=== PATIENT | female | born 1955 | race Caucasian/White ===

== ENCOUNTER 2016-11-11 23:29 | Emergency (ER) ==
[2016-11-11] MEDS ORDERED: ASPIRIN PO STA (23:41)
[2016-11-11] MEDS ORDERED: NITROGLYCERIN SL PRN (23:41)
[2016-11-11] MEDS ORDERED: PROTONIX IV ONE (23:48)
[2016-11-11] MEDS ORDERED: NS 1,000 ML IV ONE (23:48)
[2016-11-11] MEDS ORDERED: SODIUM CHLORIDE 0.9% INJ ONE (23:48)
[2016-11-11] MEDS ORDERED: G.I. COCKTAIL PO ONE (23:48)
--- NOTE | 2016-11-12 00:16 | ED EKG INTERP ---
EKG Interpretation - EKG Time of EKG reading by physician:: 00:14 EKG Read and Signed by:: Celestino Alvarez EKG Interpretation (*Must complete 3 of following elements*): Normal Rate: 95 Rhythm: Normal sinus rhythm Attestation - Scribe Verification/Attestation Scribe:: Cr Dc Acting as Scribe for:: Celestino Alvarez Scribe documention review:: This chart was documented by a scribe and accurately reflects the service the provider performed and the decisions made by the provider.
--- NOTE | 2016-11-12 00:30 | PROVIDER DOCUMENTATION ---
HPI-Abdominal Pain/GI Problem - History of Present Illness-ABD Nature of Presenting Problems: Pt comes in stating the her GI doctor changed her from protonix to zantac and since that time she has been having GERD and "CP" which appears to be epigastric in nature. She has had some nause and diarrhea but she was put on augmentin and started having diarrhea after starting it and it is a common side effect of this medication. She denies radiation of pain <Mickey Wolff - Last Filed: 11/12/16 01:59> <Cr Dc - Last Filed: 11/12/16 03:18> <Celestino Alvarez - Last Filed: 11/12/16 03:53> - General Chief Complaint: Chest Pain Stated Complaint: CP, DIARRHEA, NAUSEA Time Seen by Provider: 11/11/16 23:39 Allergies/Adverse Reactions: Patient Allergies Allergy/AdvReac Type Severity Reaction Status Date / Time hydrocodone bitartrate * AdvReac VOMITING Verified 05/07/16 21:50 [From [place]] Home Medications: Home Medication List Medication Instructions Recorded Confirmed Last Taken Type Losartan [Cozaar] 25 mg PO HS 12/21/14 11/01/16 05/06/16 History Metformin [Glucophage] 1,000 mg PO BID 02/20/15 11/01/16 05/07/16 11:00 History Vitamin B Complex [Complex B-100] 1 each PO HS 07/19/15 05/07/16 05/06/16 History Alprazolam [Xanax] 0.25 mg PO BID 05/07/16 11/01/16 05/06/16 History Amoxicillin/Pot Clavulanate 875 mg PO Q12HR #14 tablet 11/01/16 Unknown Rx [Augmentin] Budesonide Inhaler [Pulmicort 1 puff INH RTBID #1 inhaler 11/01/16 Unknown Rx Flexhaler] Fluconazole [Diflucan] 150 mg PO DAILY #3 tablet 11/01/16 Unknown Rx Fluticasone 50 Mcg Nasal [place] 1 spray FAISAL DAILY #1 bottle 11/01/16 Unknown Rx [Flonase] Guaifen/Dextromethorphan/PE 1 each PO TID #30 tablet 11/01/16 Unknown Rx [Deconex Dmx Tablet] Ranitidine HCl [Zantac] 150 mg PO BID 11/01/16 11/01/16 Unknown History Review of Systems - Adult - REVIEW OF SYSTEMS - ADULT Constitutional: reports: no symptoms reported. denies: chills, fever, fatique, weight gain, weight loss Eyes: reports: no symptoms reported. denies: discharge, dry eyes, decreased vision, blurred vision, double vision, eye pain, redness Ears, Nose, Mouth & Throat: reports: no symptoms reported. denies: ear discharge, hearing loss, tinnitus, epistaxis, nose pain, mouth swelling, hoarseness, throat pain, throat swelling Cardiovascular: reports: see HPI, chest pain. denies: edema, heart murmur, orthopnea, palpitations, poor circulation, PND, syncope Respiratory: reports: no symptoms reported. denies: chronic cough, cough, dyspnea on exertion, excessive sputum production, hemoptysis, pleurisy, shortness of breath, wheezing Gastrointestinal: reports: see HPI, abdominal pain, diarrhea, nausea. denies: hematemesis, constipation, difficulty swallowing, frequent heartburn, poor appetite, rectal bleeding, vomiting Genitourinary: reports: no symptoms reported. denies: dysuria, discharge, frequency, flank pain, hematuria, hesitency, incontinence, urinary retention Musculoskeletal: reports: no symptoms reported. denies: bone pain, back pain, joint pain, joint swelling, muscle aches, muscle weakness, neck pain Integumentary: reports: no symptoms reported. denies: hives, hair loss, itching , nail changes, rash, skin sores/ulcer, skin thickening Neurological: reports: no symptoms reported. denies: ataxia, dizziness/vertigo , headache/migraines, numbness, seizure, slurred speech Psychiatric: reports: no symptoms reported. denies: anxiety, anti-depressant use, alcohol/drug dependence, depression, emotional problems, panic attacks, suicidal thoughts Endocrine: reports: no symptoms reported. denies: change in skin pigment, excessive sweating, goiter, cold intolerance, increased hunger, increased thirst , polyuria Hematologic/Lymphatic: reports: no symptoms reported. denies: blood clots, easy bruising, low blood count, lymphedema, prolonged bleeding, swollen lymph nodes, transfusions Allergic/Immunologic: reports: no symptoms reported. denies: allergic reactions , allergic rhinitis, asthma, eczema, food allergy, hay fever, hives, positive PPD, urticaria All Other Systems: Reviewed and Negative <Mickey Wolff - Last Filed: 11/12/16 01:59> Past History - Adult - PAST MEDICAL HISTORY-ADULT Review of Records: reports: Old Records Reviewed, Nursing Assessment Review, Medications Reviewed, Social history reviewed & non-contributory. Major Childhood Illnesses: reports: denies history Cardiovascular: reports: HTN, hyperlipidemia Respiratory: reports: bronchitis, COPD, other (hx collapsed emre requiring pleurodesis) Gastrointestinal: reports: denies history Obstetrical/Gynecological: reports: other (post menopausal) Genitourinary: reports: denies history Musculoskeletal: reports: denies history Neurological: reports: denies history Psychiatric: reports: depression Endocrine/Immune: reports: Diabetes Other Conditions: reports: denies history - PRIOR SURGERIES/PROCEDURES Surgical/Procedure History: reports: hysterectomy, BTL, , hernia repair - PRIOR HOSPITALIZATIONS Prior Hospitalizations: reports: none - IMMUNIZATION STATUS Childhood Immunizations: See Nurse Assessment Flu Vaccine: See Nurse Assessment - FAMILY HISTORY Family History: reviewed, not pertinent - SOCIAL HISTORY Smoking: cigarettes, less than 1 pack/day Provider spent 3-5 mins advising pt. on dangers of tobacco.: Discussed manners to quit use, and f/u contacts for add'l counseling. Substance Use: none/never Alcohol Use Frequency: never Living Situation: family <Mickey Wolff - Last Filed: 11/12/16 01:59> Physical Exam-General - PHYSICAL EXAM-ADULT Initial Vital Signs Reviewed: Yes - CONSTITUTIONAL General Appearance: appears well, alert, no apparent distress - EYES Eyes: PERRL/EOMI, pink conjunctivae - HEAD, EARS, NOSE, MOUTH & THROAT HENMT: normocephalic/atraumatic, moist mucous membranes, normal ENT inspection - NECK Neck: non-tender, full range of motion - RESPIRATORY Respiratory: chest non-tender, lungs clear, normal breath sounds - CARDIOVASCULAR Cardiovascular: normal peripheral pulses, regular rate, rhythm, no edema, no gallop - GASTROINTESTINAL (ABDOMEN) Abdominal Exam: normal bowel sounds, non tender, soft - MUSCULOSKELETAL Back Exam: normal inspection, no CVA tenderness, no vertebral tenderness Extremity: normal range of motion, non-tender, normal gait - SKIN Integumentary: normal color, normal turgor, warm/dry - NEUROLOGIC Neurologic: director of curriculum II-XII nml as tested, grossly normal - PSYCHIATRIC Psych/Mental Status: normal mood/affect, normal thought content, normal thought process, oriented x 3 <Mickey Wolff - Last Filed: 11/12/16 01:59> Progress - PLAN OF CARE/RESULTS Progress/Plan/Lab Results: Laboratory Tests 11/12/16 11/12/16 11/12/16 00:40 00:40 00:40 WBC 15.32 H RBC 5.07 Hgb 13.8 Hct 41.0 MCV 80.9 L MCH 27.2 MCHC 33.7 RDW Std Deviation 14.4 Plt Count 313 MPV 10.8 H Immature Gran % (Auto) 0.3 Neut % (Auto) 60.7 Lymph % (Auto) 25.7 [place] % (Auto) 6.7 Eos % (Auto) 6.3 Baso % (Auto) 0.3 Immature Gran # (Auto) 0.04 Neut # (Auto) 9.30 H Lymph # (Auto) 3.94 H [place] # (Auto) 1.03 H Eos # (Auto) 0.96 H Baso # (Auto) 0.05 PT INR PTT (Actin FS) D-Dimer 0.55 H Sodium 136 Potassium 4.1 Chloride 96 L Carbon Dioxide 22 L Anion Gap 18 BUN 8 Creatinine 0.6 Estimated GFR/1.73 m2 > 60 BUN/Creatinine Ratio 13 Glucose 206 H Calculated Osmolality 276 Calcium 10.0 Magnesium 1.7 Total Bilirubin 0.29 AST 15 ALT 12 Alkaline Phosphatase 105 H Creatine Kinase 66 Troponin T Total Protein 7.0 Albumin 4.2 Globulin 2.8 Albumin/Globulin Ratio 1.5 Amylase 43 Lipase 30 11/12/16 11/12/16 00:40 00:40 WBC RBC Hgb Hct MCV MCH MCHC RDW Std Deviation Plt Count MPV Immature Gran % (Auto) Neut % (Auto) Lymph % (Auto) [place] % (Auto) Eos % (Auto) Baso % (Auto) Immature Gran # (Auto) Neut # (Auto) Lymph # (Auto) [place] # (Auto) Eos # (Auto) Baso # (Auto) PT 9.9 INR 0.93 PTT (Actin FS) 21.8 L D-Dimer Sodium Potassium Chloride Carbon Dioxide Anion Gap BUN Creatinine Estimated GFR/1.73 m2 BUN/Creatinine Ratio Glucose Calculated Osmolality Calcium Magnesium Total Bilirubin AST ALT Alkaline Phosphatase Creatine Kinase Troponin T < 0.010 Total Protein Albumin Globulin Albumin/Globulin Ratio Amylase Lipase Orders Category Date Time Status Cardiac Monitoring DIRECTED Care 11/11/16 23:41 Active Saline Loc DIRECTED Care 11/11/16 23:41 Active NPO Diet 11/11/16 23:41 Active CHEST-2 VIEWS [RAD] Stat Exams 11/11/16 23:41 Taken AMYLASE [CHEM] Stat Lab 11/12/16 00:40 Completed CBC WITH ELECTRONIC DIFF [HEME] Stat Lab 11/12/16 00:40 Completed CK PROFILE [SP CHEM] Stat Lab 11/12/16 00:40 Completed CK PROFILE [SP CHEM] Timed Lab 11/12/16 02:40 Uncollected COMPREHENSIVE METABOLIC PANEL [CHEM] Stat Lab 11/12/16 00:40 Completed D-DIMER [CHEM] Stat Lab 11/12/16 00:40 Completed LIPASE [CHEM] Stat Lab 11/12/16 00:40 Completed MAGNESIUM [CHEM] Stat Lab 11/12/16 00:40 Completed PRO B-NATRIURETIC PEPTIDE Stat Lab 11/12/16 00:40 Received PROTIME WITH INR [COAG] Stat Lab 11/12/16 00:40 Completed PTT [COAG] Stat Lab 11/12/16 00:40 Completed TROPONIN T Stat Lab 11/12/16 00:40 Completed TROPONIN T Timed Lab 11/12/16 02:40 Uncollected URINALYSIS W/POSS RFLX CULT [URINALYSIS] Stat Lab 11/11/16 23:41 Uncollected 0.9% Sodium Chloride Inj [Ns] 1,000 ml Med 11/11/16 23:48 Discontinued IV 999 mls/hr Aspirin Med 11/11/16 23:41 Discontinued 325 mg PO STAT STA [place] Alk/Al&mg Hydrox [G.i. Cocktail] Med 11/11/16 23:48 Discontinued 30 ml PO NOW ONE Nitroglycerin Sl [Nitroglycerin] Med 11/11/16 23:41 Active 0.4 mg SL Q5M PRN PRN Pantoprazole [Protonix] Med 11/11/16 23:48 Discontinued 40 mg IV NOW ONE Sodium Chloride 0.9% Med 11/11/16 23:48 Discontinued 10 ml INJ NOW ONE EKG [EKG] Stat Ther 11/11/16 23:41 Ordered Vital Signs - 24 hr 11/11/16 23:49 Pulse Rate 92 H Respiratory 22 Rate Blood Pressure 146/93 O2 Sat by Pulse 98 Oximetry - XRAY 1 XRAY Study: Chest XRAY Interpretation: nad (hcb) - CHANGE OF SHIFT REPORT (ED Provider) Report Given and Care Transferred to:: [facility] Time of Transfer: 01:31 Items Pending: Labs Tentative Impression of Patient: GERD <Mickey Wolff - Last Filed: 11/12/16 01:59> - EKG 1 Time of EKG reading by physician:: 02:54 EKG Read and Signed by:: Celestino Alvarez EKG Interpretation (*Must complete 3 of following elements*): Normal Rate: 84 Rhythm: Normal sinus rhythm - CHANGE OF SHIFT REPORT (ED Provider) Report Given and Care Transferred to:: Dr. Alvarez Time of Transfer: 02:00 Items Pending: Labs, XRAY Results <Cr Dc - Last Filed: 11/12/16 03:18> - PLAN OF CARE/RESULTS Progress/Plan/Lab Results: Laboratory Tests 11/12/16 11/12/16 11/12/16 00:40 00:40 00:40 WBC 15.32 H RBC 5.07 Hgb 13.8 Hct 41.0 MCV 80.9 L MCH 27.2 MCHC 33.7 RDW Std Deviation 14.4 Plt Count 313 MPV 10.8 H Immature Gran % (Auto) 0.3 Neut % (Auto) 60.7 Lymph % (Auto) 25.7 [place] % (Auto) 6.7 Eos % (Auto) 6.3 Baso % (Auto) 0.3 Immature Gran # (Auto) 0.04 Neut # (Auto) 9.30 H Lymph # (Auto) 3.94 H [place] # (Auto) 1.03 H Eos # (Auto) 0.96 H Baso # (Auto) 0.05 PT INR PTT (Actin FS) D-Dimer 0.55 H Sodium 136 Potassium 4.1 Chloride 96 L Carbon Dioxide 22 L Anion Gap 18 BUN 8 Creatinine 0.6 Estimated GFR/1.73 m2 > 60 BUN/Creatinine Ratio 13 Glucose 206 H Calculated Osmolality 276 Calcium 10.0 Magnesium 1.7 Total Bilirubin 0.29 AST 15 ALT 12 Alkaline Phosphatase 105 H Creatine Kinase 66 Troponin T Viu-S-Vquthtsfpry Pept Total Protein 7.0 Albumin 4.2 Globulin 2.8 Albumin/Globulin Ratio 1.5 Amylase 43 Lipase 30 Urine Source Urine Color Urine Turbidity Urine pH Ur Specific [place] Urine Protein Ur Glucose (Stick) Ur Ketones (Stick) Urine Blood Urine Nitrite Urine Bilirubin Urobilinogen Dipstick Urine Leukocytes Urine WBC (Auto) Urine RBC (Auto) U Epithel Cells (Auto) Urine Bacteria (Auto) 11/12/16 11/12/16 11/12/16 00:40 00:40 00:40 WBC RBC Hgb Hct MCV MCH MCHC RDW Std Deviation Plt Count MPV Immature Gran % (Auto) Neut % (Auto) Lymph % (Auto) [place] % (Auto) Eos % (Auto) Baso % (Auto) Immature Gran # (Auto) Neut # (Auto) Lymph # (Auto) [place] # (Auto) Eos # (Auto) Baso # (Auto) PT 9.9 INR 0.93 PTT (Actin FS) 21.8 L D-Dimer Sodium Potassium Chloride Carbon Dioxide Anion Gap BUN Creatinine Estimated GFR/1.73 m2 BUN/Creatinine Ratio Glucose Calculated Osmolality Calcium Magnesium Total Bilirubin AST ALT Alkaline Phosphatase Creatine Kinase Troponin T < 0.010 Fcx-V-Xruyaenjhhx Pept 12 Total Protein Albumin Globulin Albumin/Globulin Ratio Amylase Lipase Urine Source Urine Color Urine Turbidity Urine pH Ur Specific [place] Urine Protein Ur Glucose (Stick) Ur Ketones (Stick) Urine Blood Urine Nitrite Urine Bilirubin Urobilinogen Dipstick Urine Leukocytes Urine WBC (Auto) Urine RBC (Auto) U Epithel Cells (Auto) Urine Bacteria (Auto) 11/12/16 11/12/16 11/12/16 02:38 02:38 02:40 WBC RBC Hgb Hct MCV MCH MCHC RDW Std Deviation Plt Count MPV Immature Gran % (Auto) Neut % (Auto) Lymph % (Auto) [place] % (Auto) Eos % (Auto) Baso % (Auto) Immature Gran # (Auto) Neut # (Auto) Lymph # (Auto) [place] # (Auto) Eos # (Auto) Baso # (Auto) PT INR PTT (Actin FS) D-Dimer Sodium Potassium Chloride Carbon Dioxide Anion Gap BUN Creatinine Estimated GFR/1.73 m2 BUN/Creatinine Ratio Glucose Calculated Osmolality Calcium Magnesium Total Bilirubin AST ALT Alkaline Phosphatase Creatine Kinase 48 Troponin T < 0.010 Arr-D-Avjdkjfzpbh Pept Total Protein Albumin Globulin Albumin/Globulin Ratio Amylase Lipase Urine Source CATH Urine Color YELLOW Urine Turbidity CLEAR Urine pH 5.5 Ur Specific [place] 1.008 Urine Protein NEGATIVE Ur Glucose (Stick) 300 A Ur Ketones (Stick) NEGATIVE Urine Blood NEGATIVE Urine Nitrite NEGATIVE Urine Bilirubin NEGATIVE Urobilinogen Dipstick NORMAL Urine Leukocytes SMALL A Urine WBC (Auto) <10 Urine RBC (Auto) <10 U Epithel Cells (Auto) <10 Urine Bacteria (Auto) NEGATIVE Orders Category Date Time Status Cardiac Monitoring DIRECTED Care 11/11/16 23:41 Active Saline Loc DIRECTED Care 11/11/16 23:41 Active NPO Diet 11/11/16 23:41 Active CHEST-2 VIEWS [RAD] Stat Exams 11/11/16 23:41 Taken AMYLASE [CHEM] Stat Lab 11/12/16 00:40 Completed CBC WITH ELECTRONIC DIFF [HEME] Stat Lab 11/12/16 00:40 Completed CK PROFILE [SP CHEM] Stat Lab 11/12/16 00:40 Completed CK PROFILE [SP CHEM] Timed Lab 11/12/16 02:38 Completed COMPREHENSIVE METABOLIC PANEL [CHEM] Stat Lab 11/12/16 00:40 Completed D-DIMER [CHEM] Stat Lab 11/12/16 00:40 Completed LIPASE [CHEM] Stat Lab 11/12/16 00:40 Completed MAGNESIUM [CHEM] Stat Lab 11/12/16 00:40 Completed PRO B-NATRIURETIC PEPTIDE Stat Lab 11/12/16 00:40 Completed PROTIME WITH INR [COAG] Stat Lab 11/12/16 00:40 Completed PTT [COAG] Stat Lab 11/12/16 00:40 Completed TROPONIN T Stat Lab 11/12/16 00:40 Completed TROPONIN T Timed Lab 11/12/16 02:38 Completed URINALYSIS W/POSS RFLX CULT [URINALYSIS] Stat Lab 11/12/16 02:40 Completed 0.9% Sodium Chloride Inj [Ns] 1,000 ml Med 11/11/16 23:48 Discontinued IV 999 mls/hr Aspirin Med 11/11/16 23:41 Discontinued 325 mg PO STAT STA [place] Alk/Al&mg Hydrox [G.i. Cocktail] Med 11/11/16 23:48 Discontinued 30 ml PO NOW ONE Nitroglycerin Sl [Nitroglycerin] Med 11/11/16 23:41 Active 0.4 mg SL Q5M PRN PRN Pantoprazole [Protonix] Med 11/11/16 23:48 Discontinued 40 mg IV NOW ONE Sodium Chloride 0.9% Med 11/11/16 23:48 Discontinued 10 ml INJ NOW ONE EKG [EKG] Stat Ther 11/11/16 23:41 Ordered EKG [EKG] Stat Ther 11/12/16 02:48 Ordered Vital Signs Pulse Resp BP Pulse Ox 11/12/16 03:01 91 H 20 123/67 96 11/11/16 23:49 92 H 22 146/93 98 hydrocodone bitartrate * [From 60mo] Adverse Reaction (Verified 05/07/16 21:50) VOMITING Losartan [Cozaar] 25 mg PO HS 12/21/14 Metformin [Glucophage] 1,000 mg PO BID 02/20/15 Vitamin B Complex [Complex B-100] 1 each PO HS 07/19/15 Alprazolam [Xanax] 0.25 mg PO BID 05/07/16 Amoxicillin/Pot Clavulanate [Augmentin] 875 mg PO Q12HR #14 tablet 11/01/16 Budesonide Inhaler [Pulmicort Flexhaler] 1 puff INH RTBID #1 inhaler 11/01/16 Fluconazole [Diflucan] 150 mg PO DAILY #3 tablet 11/01/16 Fluticasone 50 Mcg Nasal [place] [Flonase] 1 spray FAISAL DAILY #1 bottle 11/01/16 Guaifen/Dextromethorphan/PE [Deconex Dmx Tablet] 1 each PO TID #30 tablet Ranitidine HCl [Zantac] 150 mg PO BID 11/01/16 Dietary Diet NPO Start Sat Nov 11 234 Laboratory 11/12/16 11/12/16 11/12/16 02:40 02:38 02:38 WBC RBC Hgb Hct MCV MCH MCHC RDW Std Deviation Plt Count MPV Immature Gran % (Auto) Neut % (Auto) Lymph % (Auto) [place] % (Auto) Eos % (Auto) Baso % (Auto) Immature Gran # (Auto) Neut # (Auto) Lymph # (Auto) [place] # (Auto) Eos # (Auto) Baso # (Auto) PT INR PTT (Actin FS) D-Dimer Sodium Potassium Chloride Carbon Dioxide Anion Gap BUN Creatinine Estimated GFR/1.73 m2 BUN/Creatinine Ratio Glucose Calculated Osmolality Calcium Magnesium Total Bilirubin AST ALT Alkaline Phosphatase Creatine Kinase 48 Troponin T < 0.010 Wmf-R-Rjwfzdghpzh Pept Total Protein Albumin Globulin Albumin/Globulin Ratio Amylase Lipase Urine Source CATH Urine Color YELLOW Urine Turbidity CLEAR Urine pH 5.5 Ur Specific [place] 1.008 Urine Protein NEGATIVE Ur Glucose (Stick) 300 A Ur Ketones (Stick) NEGATIVE Urine Blood NEGATIVE Urine Nitrite NEGATIVE Urine Bilirubin NEGATIVE Urobilinogen Dipstick NORMAL Urine Leukocytes SMALL A Urine WBC (Auto) <10 Urine RBC (Auto) <10 U Epithel Cells (Auto) <10 Urine Bacteria (Auto) NEGATIVE 11/12/16 11/12/16 11/12/16 00:40 00:40 00:40 WBC RBC Hgb Hct MCV MCH MCHC RDW Std Deviation Plt Count MPV Immature Gran % (Auto) Neut % (Auto) Lymph % (Auto) [place] % (Auto) Eos % (Auto) Baso % (Auto) Immature Gran # (Auto) Neut # (Auto) Lymph # (Auto) [place] # (Auto) Eos # (Auto) Baso # (Auto) PT 9.9 INR 0.93 PTT (Actin FS) 21.8 L D-Dimer Sodium Potassium Chloride Carbon Dioxide Anion Gap BUN Creatinine Estimated GFR/1.73 m2 BUN/Creatinine Ratio Glucose Calculated Osmolality Calcium Magnesium Total Bilirubin AST ALT Alkaline Phosphatase Creatine Kinase Troponin T < 0.010 Jxc-J-Pfptupncjjs Pept 12 Total Protein Albumin Globulin Albumin/Globulin Ratio Amylase Lipase Urine Source Urine Color Urine Turbidity Urine pH Ur Specific [place] Urine Protein Ur Glucose (Stick) Ur Ketones (Stick) Urine Blood Urine Nitrite Urine Bilirubin Urobilinogen Dipstick Urine Leukocytes Urine WBC (Auto) Urine RBC (Auto) U Epithel Cells (Auto) Urine Bacteria (Auto) 11/12/16 11/12/16 11/12/16 00:40 00:40 00:40 WBC 15.32 H RBC 5.07 Hgb 13.8 Hct 41.0 MCV 80.9 L MCH 27.2 MCHC 33.7 RDW Std Deviation 14.4 Plt Count 313 MPV 10.8 H Immature Gran % (Auto) 0.3 Neut % (Auto) 60.7 Lymph % (Auto) 25.7 [place] % (Auto) 6.7 Eos % (Auto) 6.3 Baso % (Auto) 0.3 Immature Gran # (Auto) 0.04 Neut # (Auto) 9.30 H Lymph # (Auto) 3.94 H [place] # (Auto) 1.03 H Eos # (Auto) 0.96 H Baso # (Auto) 0.05 PT INR PTT (Actin FS) D-Dimer 0.55 H Sodium 136 Potassium 4.1 Chloride 96 L Carbon Dioxide 22 L Anion Gap 18 BUN 8 Creatinine 0.6 Estimated GFR/1.73 m2 > 60 BUN/Creatinine Ratio 13 Glucose 206 H Calculated Osmolality 276 Calcium 10.0 Magnesium 1.7 Total Bilirubin 0.29 AST 15 ALT 12 Alkaline Phosphatase 105 H Creatine Kinase 66 Troponin T Syy-D-Jfowsmnkqzy Pept Total Protein 7.0 Albumin 4.2 Globulin 2.8 Albumin/Globulin Ratio 1.5 Amylase 43 Lipase 30 Urine Source Urine Color Urine Turbidity Urine pH Ur Specific [place] Urine Protein Ur Glucose (Stick) Ur Ketones (Stick) Urine Blood Urine Nitrite Urine Bilirubin Urobilinogen Dipstick Urine Leukocytes Urine WBC (Auto) Urine RBC (Auto) U Epithel Cells (Auto) Urine Bacteria (Auto) - REASSESSMENT Reassessment #1 Time Reassessed: 03:52 (pt has been pain free since her GI cocktail) Status: improving <Celestino Alvarez - Last Filed: 11/12/16 03:53> Departure - Departure Certified Medical Emergency: Emergent <Mickey Wolff - Last Filed: 11/12/16 01:59> <Cr Dc - Last Filed: 11/12/16 03:18> - Departure Time of Disposition Order: 03:51 Certified Medical Emergency: Emergent <Celestino Alvarez - Last Filed: 11/12/16 03:53> - Departure DIAGNOSIS: Chest pain, non-cardiac Disposition: HOME 01 Condition: Good Additional Instructions: restart your protonix and follow up with Dr Zambrano ED Follow Up Instructions: You have been treated by a care provider in the Emergency Department. These instructions are being provided to you so you can have an understanding of how to care for yourself upon discharge. Upon discharge from the Emergency Department, you are responsible for making arrangements for follow-up care by a physician of your choice. Take all prescribed medications as directed. Return to the Emergency Department immediately for any new or worsening symptoms. You may call the Physician Referral phone number at [phone] to obtain a list of Physicians who are taking new patients. Referrals: Christie Fonseca MD [Primary Care Provider] - Attestation - Physician/ KIRIT Attestation Patient care was provided by Advanced Practice Provider:: Yes Advanced Practice Provider:: Mickey Wolff Advanced Practice Provider documentation review:: The Mid-level provider documentation, treatment plan and medical decision making was reviewed by the physician who agrees with all treatment and medical decision making by the MLP. <Mickey Wolff - Last Filed: 11/12/16 01:59> Physician Attestation
[2016-11-12 00:58] LABS: MANUAL DIFF NEEDED? NO
[2016-11-12 01:01] LABS: BASO% 0.3 % (0.0-0.8); EOS# 0.96 X1000 (0.0-0.7); EOS% 6.3 % (0.0-10.0); HEMOGLOBIN 13.8 g/dL (12.0-16.0); IMM GRAN# 0.04 X1000 (0.0-0.04); IMM GRAN% 0.3 % (0.0-0.5); LYMPH# 3.94 X1000 (1.2-3.4); LYMPH% 25.7 % (20.5-51.1); MCH 27.2 PG (27-31); MCHC 33.7 g/dL (33-37); MCV 80.9 FL (81-99); MONO# 1.03 X1000 (0.11-0.59); MONO% 6.7 % (1.7-9.3); MPV 10.8 FL (7.4-10.4); NEUT% 60.7 % (42.2-75.2); PLT 313 X1000 (130-400); RBC 5.07 XMIL (4.2-5.4)
[2016-11-12 01:10] LABS: INR 0.93; PROTIME 9.9 Seconds (9.2-11.7); PTT 21.8 Seconds (22.0-36.0)
[2016-11-12 01:26] LABS: AGAP 18; ALBUMIN 4.2 g/dL (3.5-5.0); ALKALINE PHOSPHATASE 105 U/L (32-104); AMYLASE 43 U/L (20-200); BUN 8 mg/dL (8-22); CHLORIDE 96 mmol/L (98-107); CK PROFILE 66 U/L (24-173); COSMO 276; GOT 15 U/L (10-30); GPT 12 U/L (10-36); LIPASE 30 U/L (13-60); MAGNESIUM 1.7 mg/dL (1.5-2.7); POTASSIUM 4.1 mmol/L (3.5-5.1); SODIUM 136 mmol/L (136-145); TCO2 22 mmol/L (25-35); TOTAL BILIRUBIN 0.29 mg/dL (0.20-1.00)
[2016-11-12 03:04] LABS: URINE MICRO REVIEW NEEDED? NO; URINE SOURCE CATH
[2016-11-12 03:08] LABS: BILIRUBIN URINE NEGATIVE (NEGATIVE); BLOOD URINE NEGATIVE (NEGATIVE); COLOR YELLOW; GLUCOSE URINE 300 mg/dL (NEGATIVE); LEUKOCYTES URINE SMALL (NEGATIVE); NITRITE URINE NEGATIVE (NEGATIVE); PH URINE 5.5; PROTEIN URINE NEGATIVE (NEGATIVE); SP GRAVITY URINE 1.008; TURBIDITY URINE CLEAR (CLEAR); UROBILINOGEN URINE NORMAL (NORMAL)
[2016-11-12 03:09] LABS: UR EPITHELIAL CELLS <10 /HPF (<10); URINE BACTERIA NEGATIVE /HPF; URINE CULTURE NEEDED? YES; URINE RBC <10 /HPF (<10); URINE WBC <10 /HPF (<10)
[2016-11-12 05:04] VITALS: BP 152/74
--- NOTE | 2016-11-12 09:39 | Diag Imaging Result Document ---
PROCEDURE NAME: CHEST-2 VIEWS - 11/11/2016 TWO VIEWS OF THE CHEST: FINDINGS: There is COPD. There is apical pleural scarring particularly on the right. There is also apparent fibrosis in the lingula. The right lung base is somewhat clearer than it was on 11/01/2016. IMPRESSION: Improved right lower lobe atelectasis. Otherwise, stable chest.
--- NOTE | 2016-11-13 07:33 | EKG Report ---
Test Performed on : 11/12/2016 02:54:21 AM Test Reason : REPEAT EKG CP Blood Pressure : / mmHG Vent. Rate : 084 BPM Atrial Rate : 084 BPM P-R Int : 146 ms QRS Dur : 076 ms QT Int : 366 ms P-R-T Axes : 057 038 051 degrees QTc Int : 432 ms Normal sinus rhythm. Normal ECG No previous ECGs available Unconfirmed Result
--- NOTE | 2016-11-13 07:58 | EKG Report ---
Test Performed on : 11/11/2016 11:41:18 PM Test Reason : Chest Pain Blood Pressure : / mmHG Vent. Rate : 095 BPM Atrial Rate : 095 BPM P-R Int : 144 ms QRS Dur : 082 ms QT Int : 346 ms P-R-T Axes : 068 060 064 degrees QTc Int : 434 ms Normal sinus rhythm. Normal ECG When compared with ECG of 13-JAN-2016 18:31, No significant change was found Unconfirmed Result
== END 2016-11-12 05:08 | disposition home or self-care (01) ==
LOC: ED 23:29
DX: R07.89 Other chest pain (principal); R10.9 Unspecified abdominal pain; R19.7 Diarrhea, unspecified; R11.0 Nausea; I10 Essential (primary) hypertension; E78.5 Hyperlipidemia, unspecified; J44.9 Chronic obstructive pulmonary disease, unspecified; E11.9 Type 2 diabetes mellitus without complications; Z79.899 Other long term (current) drug therapy; F32.9 Major depressive disorder, single episode, unspecified; F17.210 Nicotine dependence, cigarettes, uncomplicated; Z71.6 Tobacco abuse counseling; Z79.51 Long term (current) use of inhaled steroids
CPT/HCPCS: 71020; 80053; 81001; 82150; 82550; 83690; 83735; 83880; 84484; 85025; 85379; 85610; 85730; 87088; 93005; C9113; J7030; S0164

== ENCOUNTER 2018-10-28 10:46 | Inpatient (IN) ==
[2018-10-28] MEDS ORDERED: VENTOLIN HFA INH PRN (13:08)
--- NOTE | 2018-10-28 14:04 | EKG Report ---
Test Performed on : 10/28/2018 1:17:41 PM Test Reason : chest pain Blood Pressure : / mmHG Vent. Rate : 086 BPM Atrial Rate : 086 BPM P-R Int : 148 ms QRS Dur : 080 ms QT Int : 350 ms P-R-T Axes : 070 063 069 degrees QTc Int : 418 ms Normal sinus rhythm. Normal ECG When compared with ECG of 12-NOV-2016 02:54, No significant change was found Confirmed by Mamadou Belcher MD ([id number]) on 10/29/2018 6:56:01 AM
[2018-10-28] MEDS: NS 1,000 ML IV SCH (14:26)
[2018-10-28] MEDS: ROCEPHIN 1 GM in NS 50 ML IV SCH (14:27)
[2018-10-28] MEDS: SODIUM CHLORIDE 0.9% INJ SCH (14:28)
[2018-10-28] MEDS: PROTONIX IV SCH (14:28)
[2018-10-28] MEDS: TESSALON PO PRN ×2 (14:28→23:57)
[2018-10-28] MEDS: XANAX PO SCH ×2 (14:28→22:01)
[2018-10-28] MEDS: ZITHROMAX 500 MG/NS 500 MG/250 ML IVPB IV SCH (14:29)
[2018-10-28] MEDS: LOVENOX SUBQ SCH (14:29)
[2018-10-28] MEDS: NICODERM PATCH TD SCH (15:20)
[2018-10-28] MEDS: TORADOL IV SCH ×2 (15:20→22:01)
[2018-10-28] MEDS: HUMALOG SUBQ SCH ×2 (16:30→22:00)
[2018-10-28] MEDS: HUMULIN R SUBQ SCH ×2 (16:45→22:00)
[2018-10-28] MEDS: BREO ELLIPTA 100/25 MCG INH INH SCH (22:00)
[2018-10-28] MEDS: GLUCOPHAGE PO SCH (22:01)
[2018-10-29] MEDS: ULTRACET 37.5MG/325MG PO PRN ×3 (01:17→20:51)
--- NOTE | 2018-10-29 01:52 | HISTORY AND PHYSICAL ---
CHIEF COMPLAINT: Shortness of breath, cough and wheezing for the last 1 week. HISTORY OF PRESENT ILLNESS: She is a 63-year-old white female who was evaluated in the [facility] yesterday for an upper respiratory infection, diagnosed as a COPD with exacerbation and possible pneumonia. The patient was admitted to the hospital since. The patient refused and went home and came back to my office for possible pneumonia and further evaluation. She was admitted for COPD exacerbation. The patient continues to smoke. PAST MEDICAL HISTORY: 1. Chronic anxiety and depression. 2. Type 2 diabetes. 3. Hypertension. 4. Hyperlipidemia. 5. Acid reflux disease from hiatal hernia. 6. Chronic nicotine dependency. 7. Complex cyst in the left kidney was excised. PAST SURGICAL HISTORY: Hiatal hernia repair, spontaneous pneumothorax on the right side in 2009, complete hysterectomy, x3, partial nephrectomy with complex cyst by Dr. Le. MEDICATIONS: Metformin 500 p.o. b.i.d., Xanax 0.25 p.o. b.i.d., simvastatin 20 daily, losartan 50 daily, Breo 1 puff in the morning, Ventolin HFA as needed. ALLERGIES: Not known. SOCIAL HISTORY: , 4 children. . Lives in [place]. Smoking 1-1/2 packs a day. No alcohol. FAMILY HISTORY: Father of heart attack at 54. Mom of ovarian cancer at 54. HEALTH MAINTENANCE: 1. Flu vaccine in 2018. 2. Pneumococcal 12/27/2017. 3. Tdap tetanus 02/18/2017. 4. Last mammography April of 2016. 5. Last colonoscopy in November of 2016. REVIEW OF SYSTEMS: HEENT: Sniffles, coryza, postnasal drainage. No sinus headache. No vision problem. No earache. Neck: No neck pain. No goiter. No lymphadenopathy. Cardiopulmonary: Cough, wheezing, shortness of breath. Gastrointestinal: No nausea, vomiting, abdominal pain. Genitourinary: No history of hesitancy, dysuria, frequency. No swelling of legs. No joint pain. Neurologic: No focal symptoms or weakness. LABORATORY INVESTIGATIONS: CBC on 10/27/2018, white cell count 9.1, hematocrit 36, platelets 310,000. Sodium 137, potassium 3.6 chloride 101, BUN 4, creatinine 0.4, glucose 207, A1c 8.6 on 12/24/2017. LFTs slightly high alkaline phosphatase. Chest x-ray, COPD with pulmonary scarring. ASSESSMENT: A 63-year-old white female admitted to the hospital basically for acute chronic obstructive pulmonary disease exacerbation. PLAN: 1. Breo, IV steroids, IV antibiotics with ceftriaxone and Zithromax. 2. Deep vein thrombosis and gastrointestinal prophylaxis. 3. Cough on Tessalon. 4. Chronic anxiety on Xanax and IV fluids. 5. Pain with Toradol as needed. 6. Reconcile home medicines. 7. We will check the labs in the morning, A1c, proBNP, troponin. 8. EKG discussed with the family at bedside. 9. Initiate vaccination protocol prior to the discharge. cc: Cristofer Fonseca MD
[2018-10-29] MEDS: NS 1,000 ML IV SCH ×2 (03:29→16:39)
[2018-10-29] MEDS: TORADOL IV SCH ×4 (03:29→20:51)
[2018-10-29] MEDS: HUMALOG SUBQ SCH ×4 (06:34→21:06)
[2018-10-29] MEDS: HUMULIN R SUBQ SCH ×4 (06:35→20:53)
--- NOTE | 2018-10-29 07:22 | EKG Report ---
Test Performed on : 10/29/2018 07:16:02 AM Test Reason : cp Blood Pressure : / mmHG Vent. Rate : 071 BPM Atrial Rate : 071 BPM P-R Int : 154 ms QRS Dur : 086 ms QT Int : 394 ms P-R-T Axes : 071 059 072 degrees QTc Int : 428 ms Normal sinus rhythm. Normal ECG When compared with ECG of 28-OCT-2018 13:17, No significant change was found Confirmed by Mamadou Belcher MD ([id number]) on 10/30/2018 7:01:01 AM
--- NOTE | 2018-10-29 07:55 | Diag Imaging Result Doc PS360 ---
CHEST-2 VIEWS - 10/29/2018 INDICATION: hypoxia COMPARISON: 10/27/2018 FINDINGS: Stable finding interstitial infiltrate in the lingula. Heart size and pulmonary vascularity is normal. No pneumothorax or pleural effusion. Stable biapical pleural scarring. IMPRESSION: No change from prior exams. Interstitial opacity in the lingula may represent pulmonary fibrosis. Electronically signed by Talon Irving 10/29/2018 7:53 AM
[2018-10-29 08:14] LABS: HEMOGLOBIN A1C 8.1 % (4.8-6.0)
[2018-10-29] MEDS: XANAX PO SCH ×2 (09:05→21:07)
[2018-10-29] MEDS: NICODERM PATCH TD SCH (09:05)
[2018-10-29] MEDS: GLUCOPHAGE PO SCH ×2 (09:05→20:51)
[2018-10-29] MEDS: COZAAR PO SCH (09:06)
[2018-10-29] MEDS: SOLU-MEDROL IV SCH (09:06)
[2018-10-29 09:20] LABS: AGAP 12; ALB/GLOB RATIO 1.1; ALBUMIN 3.2 g/dL (3.5-5.0); ALKALINE PHOSPHATASE 127 U/L (32-104); BUN 4 mg/dL (8-22); CALCIUM 7.9 mg/dL (8.8-10.2); CHLORIDE 106 mmol/L (98-107); COSMO 277; CREATININE 0.4 mg/dL (0.5-0.9); ESTIMATED GFR > 60; GLUCOSE 151 mg/dL (70-104); GOT 15 U/L (10-30); GPT 9 U/L (10-36); POTASSIUM 3.6 mmol/L (3.5-5.1); SODIUM 139 mmol/L (136-145); TCO2 21 mmol/L (25-35); TOTAL BILIRUBIN < 0.15 mg/dL (0.20-1.00)
[2018-10-29] MEDS: ROCEPHIN 1 GM in NS 50 ML IV SCH (13:05)
[2018-10-29] MEDS: LOVENOX SUBQ SCH (13:06)
[2018-10-29] MEDS: SODIUM CHLORIDE 0.9% INJ SCH (13:06)
[2018-10-29] MEDS: PROTONIX IV SCH (13:08)
[2018-10-29] MEDS: ZITHROMAX 500 MG/NS 500 MG/250 ML IVPB IV SCH (14:05)
[2018-10-29] MEDS: TESSALON PO PRN (16:38)
[2018-10-29] MEDS: BREO ELLIPTA 100/25 MCG INH INH SCH (20:13)
[2018-10-29] MEDS: ZOCOR PO SCH (20:50)
--- NOTE | 2018-10-29 23:20 | PROGRESS NOTE ---
DATE: 10/29/2018 SUBJECTIVE: The patient still is coughing. Shortness of breath and wheezing. EXAM: Vital Signs: Temperature 97 degrees. Vitals are stable. HEENT: Within normal limits. Chest: Decreased wheezing. Heart: Sounds are regular. Abdomen: Belly is soft, nontender. No neurological deficits. INVESTIGATIONS: Sodium 139, potassium 3.6, chloride 106, BUN 12, creatinine 0.4 , glucose 150. A1c 8.1. Calcium 7.9. LFTs were normal. ASSESSMENT AND PLAN: 1. Acute chronic obstructive pulmonary disease exacerbation, stable. Continue present therapy with IV steroids and IV antibiotics. 2. Type 2 diabetes, stable. 3. Chronic anxiety, stable. 4. Tobacco abuse. Quit smoking. 5. Continue present medical therapy. LEVEL OF DOCUMENTATION: 25 minutes cc: Cristofer Fonseca MD MTDD
[2018-10-30] MEDS: TESSALON PO PRN ×2 (01:12→15:52)
[2018-10-30] MEDS ORDERED: HALL'S COUGH LOZENGE MT PRN (01:13)
[2018-10-30] MEDS: TORADOL IV SCH ×4 (02:54→21:50)
[2018-10-30] MEDS: NS 1,000 ML IV SCH (05:51)
[2018-10-30] MEDS: HUMALOG SUBQ SCH ×4 (06:36→22:02)
[2018-10-30] MEDS: HUMULIN R SUBQ SCH ×4 (06:36→21:55)
[2018-10-30] MEDS: GLUCOPHAGE PO SCH ×2 (08:53→22:02)
[2018-10-30] MEDS: XANAX PO SCH ×2 (08:53→21:49)
[2018-10-30] MEDS: SOLU-MEDROL IV SCH (08:53)
[2018-10-30] MEDS: NICODERM PATCH TD SCH (08:54)
[2018-10-30] MEDS: COZAAR PO SCH (08:55)
[2018-10-30] MEDS: SODIUM CHLORIDE 0.9% INJ SCH (13:22)
[2018-10-30] MEDS: PROTONIX IV SCH (13:22)
[2018-10-30] MEDS: LOVENOX SUBQ SCH (13:23)
[2018-10-30] MEDS: ROCEPHIN 1 GM in NS 50 ML IV SCH (13:23)
[2018-10-30] MEDS: ZITHROMAX 500 MG/NS 500 MG/250 ML IVPB IV SCH (13:59)
[2018-10-30] MEDS ORDERED: COZAAR PO SCH (21:00)
[2018-10-30] MEDS: BREO ELLIPTA 100/25 MCG INH INH SCH (21:06)
[2018-10-30] MEDS: ZOCOR PO SCH (21:49)
[2018-10-30] MEDS ORDERED: PREVNAR 13 IM ONE (22:21)
[2018-10-31] MEDS: ULTRACET 37.5MG/325MG PO PRN (00:43)
[2018-10-31] MEDS: TESSALON PO PRN ×2 (00:44→09:37)
--- NOTE | 2018-10-31 01:09 | PROGRESS NOTE ---
DATE: 10/30/2018 SUBJECTIVE: The patient is a little better. No chest pain. Decreased shortness of breath. REVIEW OF SYSTEMS: None reported. EXAMINATION: Vital Signs: Temperature is 97 degrees, pulse is 86, blood pressure is 151/68, nasal cannula 96%. HEENT: Within normal limits. Neck: Supple. Chest: Bilateral air entry. Heart: Sounds are regular. Neurologic: No neurological deficits. EKG: Normal sinus, nothing acute. ASSESSMENT AND PLAN: 1. Acute chronic obstructive pulmonary disease exacerbation, currently stable. Continue on IV steroids, IV ceftriaxone, IV Zithromax, bronchodilators. 2. Diabetes. Stable on metformin 500 p.o. b.i.d. 3. Deep vein thrombosis and gastrointestinal prophylaxis. 4. Hyperlipidemia, on Zocor. 5. Chronic pain. Nonnarcotic medications. 6. Nicotine cessation programs discussed. 7. Initiate vaccination protocol. The patient did receive pneumococcal 23 on 12/27/2017. We will give Prevnar 13 prior to the discharge. LEVEL OF DOCUMENTATION: 25 minutes. cc: Cristofer Fonseca MD
[2018-10-31] MEDS: TORADOL IV SCH ×2 (02:50→09:24)
[2018-10-31] MEDS: HUMULIN R SUBQ SCH (07:46)
[2018-10-31] MEDS: HUMALOG SUBQ SCH (07:47)
[2018-10-31 08:21] VITALS: BP 156/77
[2018-10-31] MEDS: XANAX PO SCH (09:24)
[2018-10-31] MEDS: GLUCOPHAGE PO SCH (09:24)
[2018-10-31] MEDS: NICODERM PATCH TD SCH (09:25)
[2018-10-31] MEDS: SOLU-MEDROL IV SCH (09:25)
--- NOTE | 2018-11-02 23:23 | DISCHARGE SUMMARY ---
ADMISSION DATE: 10/28/2018 DISCHARGE DATE: 10/31/2018 DISCHARGING DIAGNOSIS: Acute chronic obstructive pulmonary disease exacerbation. SECONDARY DIAGNOSIS: 1. Chronic anxiety/depression. 2. Type 2 diabetes. 3. Hypertension . 4. Hyperlipidemia. 5. Tobacco abuse. 6. Acid reflux disease from hiatal hernia. 7. Status post complex cyst excision on the left kidney. BRIEF HISTORY: Please see the H and P that was done on 10/28/2018. In brief she is a 63-year-old white female was initially seen in the [facility] tried to treat as an outpatient. Patient fails to improve and as a result admitted to the hospital for acute COPD exacerbation. Patient continues to smoke . HOSPITAL COURSE: Patient was monitored in telemetry. Followup EKG, cardiac enzymes were negative. Patient was given oxygen, bronchodilators, IV steroids, IV antibiotics. Further hospital course was uneventful. Urinary tract infection with E coli sensitive to Augmentin. LABORATORY DATA: SMA 7 is normal. A1c 8.1. Cardiac enzymes were negative. Blood sugars running little bit high due to steroids. Followup chest x-ray on 10/29/2018 chronic COPD changes with interstitial opacity in the lingula due to fibrosis. DISCHARGE INSTRUCTIONS: 1. Pneumococcal 13 vaccine 10/31/2018, tetanus 02/28/2017, metformin 1000 p.o. b.i.d., Xanax 0.25 p.o. b.i.d., simvastatin 20 daily, losartan 50 daily, Breo 100/25 one puff in the morning, Ventolin HFA as risk inhalers, Augmentin 1 tablet p.o. b.i.d., Medrol Dosepak. Patient is advised to quit smoking. Chantix prescription was given as an outpatient. Follow up in my office in 1 week for maintenance care. cc: Cristofer Fonseca MD
== END 2018-10-31 11:46 | disposition home or self-care (01) | DRG 190 ==
LOC: DIRADM 10:46 → 4N 11:24
PROVIDERS: ADMIT Internal Medicine; ATTEND Internal Medicine
CPT/HCPCS: 71020; 71046; 80053; 81001; 82948; 83036; 83880; 84484; 85025; 87040; 87077; 87088; 87186; 87275; 87276; 87804; 90670; 93005; 93010; 94640; 96372; 99283; A9270; C9113; J0456; J0696; J1650; J1815; J1885; J2930; J7030; S0164; XXXXX

== ENCOUNTER 2019-09-23 01:11 | Inpatient (IN) ==
[2019-09-23] MEDS ORDERED: TORADOL IV ONE (02:13)
--- NOTE | 2019-09-23 02:23 | PROVIDER DOCUMENTATION ---
HPI-Female /OB/Breast - General Chief Complaint: UTI Symptoms Stated Complaint: UTI HURTING BADLY Time Seen by Provider: 09/23/19 01:24 Allergies/Adverse Reactions: Patient Allergies Allergy/AdvReac Type Severity Reaction Status Date / Time No Known Allergies Allergy Verified 08/11/18 19:14 Home Medications: Home Medication List Medication Instructions Recorded Confirmed Last Taken Type Metformin [Glucophage] 1,000 mg PO BID 02/20/15 09/23/19 12/23/17 20:00 History Alprazolam [Xanax] 0.25 mg PO BID 05/07/16 09/23/19 12/23/17 20:00 History Simvastatin 20 mg PO DAILY 12/01/17 09/23/19 12/23/17 20:00 History Losartan [Cozaar] 50 mg PO DAILY 12/24/17 09/23/19 10/29/18 History Albuterol Sulfate Inhaler 2 puff INH PRN PRN 10/27/18 09/23/19 Unknown History [Ventolin Hfa] Fluticasone/Vilanterol [Breo 1 puff INH QPM 10/27/18 09/23/19 Unknown History Ellipta 100-25 Mcg INH] Methylprednisolone [Medrol Dosepak] 4 mg PO DIRECTED #1 pkg 10/31/18 09/23/19 Unknown Rx Ketorolac [Toradol] 10 mg PO Q8H PRN PRN #15 tab 01/13/19 09/23/19 Unknown Rx Mupirocin Ointment [Bactroban 1 applicatn TOP TID #1 tube 01/13/19 09/23/19 Unknown Rx Ointment] Sulfamethoxazole/Trimethoprim 1 ea PO BID #8 tab 01/13/19 09/23/19 Unknown Rx [Bactrim Ds Tablet] - History of Present Illness-Female /OB Nature of Presenting Problem: Patient is a 64 year old white female with history of diabetes, followed by Dr. KISHA Fonseca, who was seen at [facility] by Dr. Mesa, diagnosed with pyelonephritis and given IM Rocephin. Noted to have high white count of 17 K and advised to be admittted. Patient signed out AMA to come to [facility] for admission to KISHA Fonseca. Patient complains of dysuria and sharp left flank pain for past 2 days. Review of Systems - Adult - REVIEW OF SYSTEMS - ADULT Constitutional: reports: chills, fever Eyes: reports: no symptoms reported Ears, Nose, Mouth & Throat: reports: no symptoms reported Cardiovascular: reports: no symptoms reported. denies: chest pain Respiratory: denies: shortness of breath Gastrointestinal: reports: no symptoms reported Genitourinary: reports: dysuria, flank pain, frequent UTI's Musculoskeletal: reports: no symptoms reported Integumentary: reports: no symptoms reported Neurological: reports: no symptoms reported Psychiatric: reports: no symptoms reported Endocrine: reports: no symptoms reported Hematologic/Lymphatic: reports: no symptoms reported Allergic/Immunologic: reports: no symptoms reported All Other Systems: Reviewed and Negative Past History - Adult - PAST MEDICAL HISTORY-ADULT Review of Records: reports: Old Records Reviewed, Nursing Assessment Review, Medications Reviewed, Social history reviewed & non-contributory. Major Childhood Illnesses: reports: denies history Cardiovascular: reports: HTN, hyperlipidemia Respiratory: reports: asthma, bronchitis, COPD, other (hx collapsed emre requiring pleurodesis) Gastrointestinal: reports: denies history Obstetrical/Gynecological: reports: other (post menopausal) Genitourinary: reports: chronic UTI's, other (mass on kidney) Musculoskeletal: reports: denies history Neurological: reports: denies history Psychiatric: reports: anxiety, depression Endocrine/Immune: reports: Diabetes Other Conditions: reports: denies history, MRSA - PRIOR SURGERIES/PROCEDURES Surgical/Procedure History: reports: colonoscopy, hysterectomy, BTL, , hernia repair, other (renal mass removed, esophagues stretched) - PRIOR HOSPITALIZATIONS Prior Hospitalizations: reports: none - IMMUNIZATION STATUS Childhood Immunizations: See Nurse Assessment Flu Vaccine: See Nurse Assessment - FAMILY HISTORY Family History: reviewed, not pertinent - SOCIAL HISTORY Smoking: greater than 1 pack/day Substance Use: denies Living Situation: family Physical Exam-General - CONSTITUTIONAL General Appearance: alert, moderate distress, other (in pain) - EYES Eyes: other (clear) - HEAD, EARS, NOSE, MOUTH & THROAT HENMT: normocephalic/atraumatic, moist mucous membranes - NECK Neck: non-tender, full range of motion, supple - RESPIRATORY Respiratory: lungs clear, no pleuratic chest pain, no accessory muscle use - CARDIOVASCULAR Cardiovascular: regular rate, rhythm - GASTROINTESTINAL (ABDOMEN) Abdominal Exam: normal bowel sounds, non tender, soft - LYMPHATIC Lymphatic: no adenopathy - MUSCULOSKELETAL Back Exam: CVA tenderness (left) Extremity: normal range of motion - SKIN Integumentary: normal turgor - NEUROLOGIC Neurologic: grossly normal, no motor/sensory deficits - PSYCHIATRIC Psych/Mental Status: oriented x 3, anxious Progress - PLAN OF CARE/RESULTS Progress/Plan/Lab Results: Vital Signs - 8 hr 09/23/19 01:20 Temperature 97.8 F Pulse Rate 98 H Respiratory Rate 20 Blood Pressure 147/83 O2 Sat by Pulse Oximetry 97 Laboratory Results - last 24 hr 09/23/19 02:36 WBC 16.59 H RBC 4.92 Hgb 13.5 Hct 40.5 MCV 82.3 MCH 27.4 MCHC 33.3 RDW Std Deviation 13.6 Plt Count 300 MPV 9.8 Immature Gran % (Auto) 0.3 Neut % (Auto) 72.7 Lymph % (Auto) 16.3 L Parmer % (Auto) 6.9 Eos % (Auto) 3.6 Baso % (Auto) 0.2 Immature Gran # (Auto) 0.05 H Neut # (Auto) 12.08 H Lymph # (Auto) 2.70 Parmer # (Auto) 1.14 H Eos # (Auto) 0.59 Baso # (Auto) 0.03 Orders Category Date Time Status Update & Confirm Home Medicati ROUTINE Care 09/23/19 03:[address] ABDOMEN/PELVIS W/O CONTRAST [CT] Stat Exams 09/23/19 03:05 Taken BLOOD CULTURE [BLDCUL] Stat Lab 09/23/19 02:36 Ordered CBC WITH ELECTRONIC DIFF [HEME] Stat Lab 09/23/19 02:36 Completed URINALYSIS W/POSS RFLX CULT [URINALYSIS] Stat Lab 09/23/19 01:24 Uncollected Ketorolac [Toradol] Med 09/23/19 02:13 Discontinued 30 mg IV NOW ONE Nicotine Patch [Nicoderm Patch] Med 09/23/19 03:11 Active 21 mg TD DAILY Nicotine Patch [Nicoderm Patch] Med 09/23/19 02:35 Discontinued 21 mg TD NOW ONE Transfer/Admit Order [TRANSFER] Routine Transfer 09/23/19 03:12 Ordered Result Diagrams: 09/23/19 02:36 - CONSULTS/PCP/HOSPITALIST Notification #1 *Consult/PCP/Hospitalist*: Dr. Yateshospitalist Time Discussed: 02:30 Consult Disposition: Admit Departure - Departure Date of Disposition Decision: 09/23/19 Time of Disposition Decision: 04:11 DIAGNOSIS: Pyelonephritis Leukocytosis Qualifiers: Leukocytosis type: unspecified Qualified Code(s): D72.829 - Elevated white blood cell count, unspecified Disposition: ADMITTED INPATIENT 09 Certified Medical Emergency: Emergent Condition: Stable - Critical Care Note This patient required my direct & personal management of CC.: No Attestation - Physician/ KIRIT Attestation Patient care was provided by Advanced Practice Provider:: No The physician spent face to face time with patient:: Yes Advanced Practice Provider documentation review:: Supervising physician onsite and consulted in the evaluation and care of this patient. The physician did have a face to face encounter with the patient.
[2019-09-23] MEDS ORDERED: NICODERM PATCH TD ONE (02:35)
[2019-09-23 03:03] LABS: BASO# 0.03 X1000 (0.0-0.2); BASO% 0.2 % (0.0-0.8); EOS# 0.59 X1000 (0.0-0.7); EOS% 3.6 % (0.0-10.0); HEMATOCRIT 40.5 % (37.0-47.0); HEMOGLOBIN 13.5 g/dL (12.0-16.0); IMM GRAN# 0.05 X1000 (0.0-0.04); IMM GRAN% 0.3 % (0.0-0.5); LYMPH% 16.3 % (20.5-51.1); MCH 27.4 PG (27-31); MCHC 33.3 g/dL (33-37); MCV 82.3 FL (81-99); MONO# 1.14 X1000 (0.11-0.59); MONO% 6.9 % (1.7-9.3); MPV 9.8 FL (7.4-10.4); NEUT# 12.08 X1000 (1.4-6.5); NEUT% 72.7 % (42.2-75.2); PLT 300 X1000 (130-400); RBC 4.92 XMIL (4.2-5.4); RDW 13.6 % (11.5-14.5); WBC 16.59 X1000 (4.8-10.8)
[2019-09-23] MEDS: NICODERM PATCH TD SCH (03:11)
--- NOTE | 2019-09-23 04:20 | HISTORY AND PHYSICAL ---
CHIEF COMPLAINT: Urinary tract infection. HISTORY OF PRESENT ILLNESS: This is a 64-year-old female who comes in. She is followed by Dr. Pato Fonseca outpatient. She was originally seen at [facility] [place] [place] Mesa and diagnosed with pyelonephritis. She had noted leukocytosis and was advised to be admitted; however, she signed out AMA because she wanted to come to [facility] for admission to Dr. Pato Fonseca. She noted dysuria, frequency and sharp left flank pain for the past two days. She has had a complex cyst of the left kidney that was excised. Also has chronic anxiety and depression, diabetes mellitus type 2, hypertension, hyperlipidemia, GERD with a hiatal hernia and chronic nicotine dependence. Smoking around two packs of cigarettes per day. A CT scan has not been obtained. Will order a CT of the abdomen and pelvis. She will be admitted for IV antibiotics and further evaluation and treatment. PAST MEDICAL HISTORY: See HPI. PREVIOUS SURGICAL HISTORY: Hiatal hernia repair, spontaneous pneumothorax on the right side in 2009, complete hysterectomy, times three, partial nephrectomy with complex cyst by Dr. Le. SOCIAL HISTORY: with four children. She is . Lives in [place]. Smokes two packs of cigarettes per day. No alcohol or illicit drugs. FAMILY HISTORY: Father at age 54 with a heart attack, mother of ovarian cancer at age 54. ALLERGIES: No known drug allergies. HOME MEDICATIONS: A list of home medications has not been reconciled. An order was placed for Nursing to reconcile home medications in the computer. These will be restarted when appropriate. REVIEW OF SYSTEMS: Fourteen point review of systems conducted with the patient. Pertinent positive listed above in the HPI. All other systems reviewed and found to be negative. PHYSICAL EXAMINATION: VITAL SIGNS: Temperature 97.8, pulse 98, respirations 20, blood pressure 147/83, oxygen saturation 97% on room air. GENERAL: A 64-year-old female lying in the ER stretcher.. Alert and oriented times 3, answers all questions appropriately. HEENT: Head is atraumatic, normocephalic. Pupils equal, round, react to light. Extraocular eye movement is intact. Sclera is anicteric. Conjunctiva is pink. Oral mucosa is moist. NECK: Supple. No JVD. No thyromegaly. Trachea is midline. No cervical lymphadenopathy. CARDIAC: S1, S2 appreciated. 2/6 systolic ejection murmur. No gallops, no rubs. LUNGS: Mild expiratory wheeze, prolonged expiratory phase. No rhonchi, no rales. Symmetric rise and fall with respirations. ABDOMEN: Soft, nondistended, tender in the suprapubic area. Bowel sounds present all 4 quadrants, normoactive. No pulsatile mass. No organomegaly. BACK: Left-sided CVA tenderness. No right-sided CVA tenderness. No vertebral tenderness. EXTREMITIES: No clubbing, cyanosis, edema. Two-plus pedal pulses bilaterally. GENITOURINARY: No bladder distention. Patient voids. As noted, she does have suprapubic tenderness. NEUROLOGICAL: Alert and oriented times 3. No focal motor deficits. Otherwise nonfocal examination. DIAGNOSTIC DATA: CT of the abdomen and pelvis is pending. LABORATORY DATA: WBC 17.61. Hemoglobin 13.7. Hematocrit 31.4. Platelet count 300. Sodium 132. Potassium 3.7. Chloride 97. Carbon dioxide 20. BUN 4. Creatinine 0.5. Glucose 213. Urine: Nitrite positive, leukocyte esterase positive with too numerous to count WBCs, 4+ bacteria. Was also positive for hematuria. ASSESSMENT: 1. Left-sided pyelonephritis. Will rule out kidney stone. 2. Urinary tract infection. 3. Tobacco abuse. 4. Hypertension. 5. Diabetes mellitus type 2 with hyperglycemia. 6. Gastroesophageal reflux disease. PLAN: 1. Admit patient to the medical floor. Will give IV antibiotics. I believe she received 1 gram of Rocephin IM at [place]. She has had multiple cultures that were positive for E.coli. Appears to be sensitive to Rocephin. Will continue that. Also had one with Citrobacter in the past which was also sensitive to Rocephin. Will continue Rocephin 1 gram IV daily. 2. NicoDerm patch. She is a obz-bnmg-hgs-day smoker. Will place two NicoDerm patches on the patient. 3. Will continue home medications once reconciled. Further recommendations per patient clinical course. Dictated by ANY Castro for Jerry Yates MD Addendum Pt's exam was notable for 2/6 ESM and L flank, suprapubic and LLQ tenderness without rebound. Agree and discussed the above plan with [employer] and Pt. cc: ANY Castro MD P.J. Reddy, MD MTDD
[2019-09-23] MEDS ORDERED: TYLENOL PO PRN (05:24)
[2019-09-23] MEDS: NS 1,000 ML IV SCH ×3 (05:24→20:16)
[2019-09-23] MEDS ORDERED: NORCO-7.5 PO PRN (05:24)
[2019-09-23] MEDS: PRILOSEC PO SCH (06:28)
--- NOTE | 2019-09-23 07:29 | Diag Imaging Result Doc PS360 ---
EXAM: CT ABDOMEN/PELVIS W/O CONTRAST 09/23/2019 HISTORY: left flank pain TECHNIQUE: This exam was performed using automated exposure control, adjustment of mA or kV according to patient size, and/or use of iterative reconstruction technique. COMMENT: The current study is compared with 02/24/2017. There are emphysematous and fibrotic changes in both lung bases similar in appearance to the previous study. There are granulomata in the spleen. There are postsurgical changes in the left kidney. There is some fullness of the collecting system on the left without evidence of stones. The right renal pelvis is also prominent. There is an apparent calcification adherent to the gallbladder wall laterally. There is no evidence of cholecystitis. There is stool throughout much of the colon. The small bowel is not distended. There are multiple calcified phleboliths present in the gonadal veins bilaterally. The urinary bladder is not distended. There is no evidence of ureterolithiasis. There are postsurgical changes in the pelvis on the left which may be related to the bladder. There has been hysterectomy. There is a bone island in the left ilium and degenerative facet and disc disease throughout the lumbar spine. There is curvature of the lumbar spine with convexity to the left. IMPRESSION: 1. Pulmonary fibrosis. 2. No evidence of acute disease in the abdomen or pelvis. Nonacute findings as described above. Electronically signed by Suleiman Long 09/23/2019 7:27 AM
[2019-09-23] MEDS: ZOFRAN IV PRN (09:05)
[2019-09-23] MEDS: ROCEPHIN 1 GM in NS 50 ML IV SCH (10:40)
[2019-09-23] MEDS ORDERED: TORADOL IV PRN (15:47)
[2019-09-23] MEDS ORDERED: TORADOL ONE (15:59)
--- NOTE | 2019-09-23 22:41 | ECHO REPORT ---
ORDER DATE: 09/23/2019 MEASUREMENTS: Septal thickness 1.0. Left ventricular internal diameter in diastole 4.9. Left ventricular internal diameter in systole 2.9. Posterior wall thickness 1.0. Aortic root 2.8. Left atrium 3.5 SUMMARY: 1. Adequate quality study. 2. Aortic valve is trileaflet and opens normally on 2-dimensional images. Peak gradient across aortic valve is 14 mmHg. Mitral, tricuspid and pulmonic valves are without evidence of structural abnormality with trace mitral regurgitation and trace tricuspid regurgitation. Aortic root is normal size. 3. Normal left main dimensions demonstrated. Estimated left ventricular ejection fraction approximately 70%. No regional wall motion abnormalities are evident. Doppler suggests grade 1 left ventricular diastolic dysfunction. Left atrium, right atrium, right ventricle are normal in size with grossly preserved right ventricular systolic function. 4. No pericardial effusion. 5. Appearance of inferior vena cava suggests normal central venous pressure. CONCLUSIONS: 1. No significant valvular abnormality. 2. Estimated left ejection fraction at least 70%, without regional wall motion abnormality evident. 3. Grade 1 left ventricular diastolic dysfunction suggested. cc: MD Pierre James CRNP Jagan Reddy, MD
[2019-09-23] MEDS: TORADOL IV PRN (22:46)
[2019-09-24] MEDS: PRILOSEC PO SCH (06:16)
[2019-09-24] MEDS: NS 1,000 ML IV SCH ×2 (08:04→23:07)
[2019-09-24] MEDS: XANAX PO SCH ×2 (09:03→22:47)
[2019-09-24] MEDS: TORADOL IV PRN (09:03)
[2019-09-24] MEDS: NICODERM PATCH TD PRN (09:04)
[2019-09-24] MEDS: GLUCOPHAGE PO SCH (09:40)
[2019-09-24] MEDS: ROCEPHIN 1 GM in NS 50 ML IV SCH (09:40)
--- NOTE | 2019-09-24 10:41 | Diag Imaging Result Doc PS360 ---
EXAM: US ABDOMEN-COMPLETE 09/24/2019 HISTORY: nausea TECHNIQUE: Abdominal ultrasound COMMENT: There are granulomata in the spleen. The spleen is not enlarged. The kidneys are without evidence of mass. There is mild dilatation of the collecting system on the right. The resistive index is only 0.66 however which is within the normal range. The visualized portions of the aorta and inferior vena cava are within normal limits. The liver is hyperechoic. There is a apparent calcification adherent to the anterior wall of the gallbladder which may represent a polyp. This was also demonstrated on the CT examination of 09/23/2019. There is antegrade flow in the portal vein. The pancreatic head and body are normal in appearance. The common bile duct measures less than 4 mm. IMPRESSION: 1. Gallbladder polyp. 2. Hepatic steatosis. 3. Mild hydronephrosis without elevation in resistive index. Electronically signed by Sulieman Long 09/24/2019 10:38 AM
[2019-09-24] MEDS ORDERED: NS 250 ML ONE (12:41)
[2019-09-24 13:06] LABS: INR 0.91; PROTIME 12.3 Seconds (11.0-16.0); PTT 25.8 Seconds (22.3-41.8)
[2019-09-24] MEDS: NICODERM PATCH TD SCH ×2 (14:10→15:52)
[2019-09-24] MEDS: MIRALAX PO SCH (15:51)
[2019-09-24] MEDS: BREO ELLIPTA 100/25 MCG INH INH SCH (21:53)
[2019-09-24] MEDS: ZOCOR PO SCH (22:46)
--- NOTE | 2019-09-25 02:39 | PROGRESS NOTE ---
DATE: 09/24/2019 SUBJECTIVE: The patient is a 64-year-old white female admitted to the hospital with abdominal pain, flank pain. During the emergency room stay, the patient has poor IV access. Continues to have nausea, constipation. CT scan showed possible gallstones. She is not able to hold anything down. As a result, waiting to be admitted on the floor. REVIEW OF SYSTEMS: Some abdominal pain, nausea. PAST MEDICAL HISTORY: Reviewed. PAST SURGICAL HISTORY: Reviewed. MEDICINES: Reviewed. ALLERGIES: Not known. PHYSICAL EXAMINATION: Vital signs: Temperature is 98.3, pulse is 83, blood pressure is 144/57. Height 5 feet 4-inches. Weight 129 pounds. HEENT: Atraumatic, normocephalic. Pupils equal, react to light. Dry mucous membranes. Neck: Supple. Chest: Clear. Heart: Sounds are regular. Abdomen: Soft. No signs of peritonitis. Neurologic: No obvious deficits noted. INVESTIGATIONS: White cell count 16, hematocrit 40, platelets 300,000. PT/INR is normal. CT scan of abdomen and pelvis reported pulmonary fibrosis, no evidence of acute disease. Postsurgical changes in the left kidney, severe COPD and emphysema. Some fullness in the collecting system on the left without any evidence of stone. Right renal pelvis is prominent. Apparent calcification close to the bladder. No evidence of cholecystitis. Constipation, hysterectomy. Blood cultures, urine cultures are pending. ASSESSMENT AND PLAN: 1. Poor intravenous access. Will get a PICC line. 2. Repeat the labs in the morning for A1c, CBC, CMP, urine culture. 3. Anxiety, on Xanax. 4. Nausea with questionable stones. We will get an ultrasound of the abdomen. 5. Toradol as needed for pain and possible urinary tract infection. Continue on IV fluids and IV ceftriaxone. 6. Hyperlipidemia, on Zocor. 7. Acid reflux disease on Prilosec. 8. Nicotrol patches for chronic smoking. 9. Type 2 diabetes, on metformin. 10. Will repeat the labs in the morning. Based on that, further recommendations will be followed. LEVEL OF DOCUMENTATION: Was 35 minutes. cc: Cristofer Fonseca MD
[2019-09-25] MEDS: PRILOSEC PO SCH (06:23)
[2019-09-25] MEDS: ROCEPHIN 1 GM in NS 50 ML IV SCH (08:46)
[2019-09-25] MEDS: XANAX PO SCH ×2 (08:49→20:51)
[2019-09-25] MEDS: GLUCOPHAGE PO SCH ×3 (08:50→17:48)
[2019-09-25] MEDS: MIRALAX PO SCH (09:07)
[2019-09-25] MEDS: NICODERM PATCH TD SCH (09:07)
[2019-09-25 11:53] LABS: BASO# 0.02 X1000 (0.0-0.2); BASO% 0.2 % (0.0-0.8); EOS# 0.66 X1000 (0.0-0.7); EOS% 5.4 % (0.0-10.0); HEMATOCRIT 36.4 % (37.0-47.0); HEMOGLOBIN 11.7 g/dL (12.0-16.0); IMM GRAN# 0.02 X1000 (0.0-0.04); IMM GRAN% 0.2 % (0.0-0.5); LYMPH# 2.36 X1000 (1.2-3.4); LYMPH% 19.3 % (20.5-51.1); MCH 26.9 PG (27-31); MCHC 32.1 g/dL (33-37); MCV 83.7 FL (81-99); MONO# 0.78 X1000 (0.11-0.59); MONO% 6.4 % (1.7-9.3); MPV 9.5 FL (7.4-10.4); NEUT# 8.38 X1000 (1.4-6.5); NEUT% 68.5 % (42.2-75.2); PLT 287 X1000 (130-400); RBC 4.35 XMIL (4.2-5.4); RDW 13.2 % (11.5-14.5); WBC 12.22 X1000 (4.8-10.8)
[2019-09-25] MEDS: NS 1,000 ML IV SCH (12:03)
[2019-09-25 12:06] LABS: AGAP 12; ALB/GLOB RATIO 1.2; ALBUMIN 3.3 g/dL (3.5-5.0); ALKALINE PHOSPHATASE 109 U/L (32-104); BUN 6 mg/dL (8-22); CALCIUM 8.4 mg/dL (8.8-10.2); CHLORIDE 103 mmol/L (98-107); COSMO 273; CREATININE 0.4 mg/dL (0.5-0.9); ESTIMATED GFR > 60; GLUCOSE 133 mg/dL (70-104); GOT 9 U/L (10-30); GPT 5 U/L (10-36); SODIUM 137 mmol/L (136-145); TCO2 22 mmol/L (25-35); TOTAL BILIRUBIN 0.18 mg/dL (0.20-1.00)
[2019-09-25 12:14] LABS: HEMOGLOBIN A1C 6.9 % (4.8-6.0)
[2019-09-25] MEDS: ZOCOR PO SCH (20:51)
[2019-09-25] MEDS: ZOFRAN IV PRN (20:51)
[2019-09-25] MEDS: BREO ELLIPTA 100/25 MCG INH INH SCH (22:03)
--- NOTE | 2019-09-26 00:12 | PROGRESS NOTE ---
DATE: 09/25/2019 SUBJECTIVE: The patient is a little better. A PICC line was placed on the left side. OBJECTIVE: Temperature is 98 degrees. Vitals are stable. HEENT: Within normal limits. Neck: Supple, no lymphadenopathy. Chest: Bilateral air entry. Heart sounds are regular. The belly is soft, nontender. INVESTIGATIONS: White cell count 12, hematocrit 36, platelets 287,000. Sodium 137, potassium 4.0, BUN 6, creatinine 0.4, glucose 133. A1c 6.9, calcium 8.4. LFTs were normal and urine cultures were negative. Blood cultures are pending. Ultrasound of the abdomen: Gallbladder polyp, hepatic steatosis, mild hydronephrosis. ASSESSMENT AND PLAN: 1. Nausea is improved, ruled out gallstones. 2. Constipation better. 3. Possible urinary tract infection on IV antibiotics with ceftriaxone. Continue IV fluids. 4. Chronic obstructive pulmonary disease (COPD). Quit smoking. 5. Chronic anxiety on Xanax. 6. Reconcile home medications. 7. If she continues to improve, we will discharge her in the morning. LEVEL OF DOCUMENTATION: 25 minutes. cc: Cristofer Fonseca MD
[2019-09-26] MEDS: NS 1,000 ML IV SCH (03:40)
[2019-09-26] MEDS: PRILOSEC PO SCH (06:54)
[2019-09-26] MEDS: NICODERM PATCH TD PRN (06:56)
[2019-09-26 07:42] VITALS: BP 130/55
[2019-09-26] MEDS: ROCEPHIN 1 GM in NS 50 ML IV SCH (08:08)
[2019-09-26] MEDS: GLUCOPHAGE PO SCH (08:09)
[2019-09-26] MEDS: XANAX PO SCH (08:09)
[2019-09-26] MEDS: NICODERM PATCH TD SCH (08:09)
[2019-09-26] MEDS: MIRALAX PO SCH (08:09)
--- NOTE | 2019-09-28 05:49 | DISCHARGE SUMMARY ---
ADMISSION DATE: 09/23/2019 DISCHARGE DATE: 09/26/2019 DISCHARGING DIAGNOSIS: Urinary tract infection due to Escherichia coli. SECONDARY DIAGNOSES: 1. Chronic anxiety. 2. Chronic obstructive pulmonary disease. 3. Type 2 diabetes. 4. Hypertension. 5. Hyperlipidemia. 6. Tobacco abuse. 7. Acid reflux disease from hiatal hernia. 8. Status post complex cyst excision on the left kidney. 9. Constipation. BRIEF HISTORY: Please see the H and P that was done by hospitalist. In brief, she is a 64-year- old white female who was admitted to the hospital with left-sided abdominal pain, nausea, low- grade fever, elevated white cell count. Urine initially positive for infection, cultures grew Escherichia coli. During this hospital course, patient has intractable nausea, constipation. As a part of the workup, ultrasound and CT scan of the abdomen and pelvis were done. It showed constipation. The patient was given IV fluids, Zofran, IV antibiotics. IV access was poor. PICC line was placed on the left side. After treatment the patient condition better. LABORATORY DATA: As follows: White cell count came down to 12, hematocrit 36, platelets 287,000. Sodium 137, potassium 4, chloride 103, BUN 6, creatinine 0.4. Glucose 133. A1c 6.9. LFTs were normal. Albumin 3.3. Blood cultures are negative. Initial urine culture showed E coli ESBL negative, resistant to Levaquin. RADIOLOGY PROCEDURES: 1. CT scan of the abdomen and pelvis finding pulmonary fibrosis, constipation, there are granulomas present in the spleen. Postsurgical changes in the left kidney. 2. Ultrasound of the abdomen showed gallbladder polyp, hepatic steatosis. 3. Echocardiography findings: Ejection fraction 70%. Diastolic dysfunction. No significant valvular abnormality noted. DISCHARGE INSTRUCTIONS: Pneumococcal 13 vaccine given 10/31/2017, tetanus 02/18/2017. Metformin 1000 p.o. b.i.d., Xanax 0.25 p.o. b.i.d., simvastatin 20 mg daily, Cozaar 50 mg daily, Breo 1/25, one puff in the morning, Ventolin HFA 1 puff q.6h as needed, MiraLAX 17 g daily, Macrobid 100 p.o. b.i.d. for 10 days. Follow-up in my office in 2 weeks. cc: Cristofer Fonseca MD
== END 2019-09-26 10:15 | disposition home or self-care (01) | DRG 690 ==
LOC: ED 01:11 → EDIPHOLD 03:53 → SUATTDRO 03:53 → 3N 09-24 12:30
PROVIDERS: ADMIT Internal Medicine; ATTEND Internal Medicine

== ENCOUNTER 2019-12-22 11:59 | Inpatient (IN) ==
[2019-12-22 13:18] LABS: ALLEN TEST NO; BE -2.1 mmoll (-3.0-3.0); BLOOD TYPE ARTERIAL; METHB 1.2 % (0.0-1.5); PCO2(98.6) 30 mmHg (35-45); PO2(98.6) 87 mmHg (60-100); SAMPLE BLOOD; SAO2 98.3 % (95.0-100.0); pH(98.6) 7.45 (7.35-7.45)
[2019-12-22 13:23] LABS: MODALITY ROOM AIR; O2HB 87.3 % (95.0-99.0)
[2019-12-22] MEDS: NICODERM PATCH TD SCH (13:37)
[2019-12-22 13:47] LABS: BASO# 0.05 X1000 (0.0-0.2); BASO% 0.4 % (0.0-0.8); EOS# 0.43 X1000 (0.0-0.7); EOS% 3.8 % (0.0-10.0); HEMATOCRIT 39.4 % (37.0-47.0); HEMOGLOBIN 12.7 g/dL (12.0-16.0); IMM GRAN# 0.02 X1000 (0.0-0.04); IMM GRAN% 0.2 % (0.0-0.5); LYMPH# 1.98 X1000 (1.2-3.4); LYMPH% 17.7 % (20.5-51.1); MCH 25.9 PG (27-31); MCHC 32.2 g/dL (33-37); MCV 80.2 FL (81-99); MONO# 0.66 X1000 (0.11-0.59); MONO% 5.9 % (1.7-9.3); MPV 9.4 FL (7.4-10.4); NEUT# 8.07 X1000 (1.4-6.5); PLT 384 X1000 (130-400); RBC 4.91 XMIL (4.2-5.4); RDW 14.7 % (11.5-14.5); WBC 11.21 X1000 (4.8-10.8)
[2019-12-22 14:05] LABS: AGAP 13; BUN 4 mg/dL (8-22); CALCIUM 9.2 mg/dL (8.8-10.2); CHLORIDE 97 mmol/L (98-107); COSMO 266; CREATININE 0.5 mg/dL (0.5-0.9); ESTIMATED GFR > 60; GLUCOSE 140 mg/dL (70-104); POTASSIUM 3.8 mmol/L (3.5-5.1); SODIUM 133 mmol/L (136-145); TCO2 23 mmol/L (25-35)
[2019-12-22 14:06] LABS: INR 0.97; PROTIME 12.9 Seconds (11.0-16.0)
[2019-12-22] MEDS ORDERED: NS 250 ML ONE (15:14)
[2019-12-22] MEDS: HUMULIN R SUBQ SCH ×2 (16:20→21:13)
[2019-12-22] MEDS: ZOSYN 3.375 GM in NS 50 ML IV SCH ×3 (16:27→23:18)
[2019-12-22] MEDS: NS 1,000 ML IV SCH ×2 (16:28→16:30)
[2019-12-22] MEDS: LEVAQUIN 500 MG/D5W 500 MG/100 ML IVPB IV SCH (16:31)
[2019-12-22] MEDS: SOLU-MEDROL IV SCH ×2 (16:31→23:18)
[2019-12-22] MEDS: GLUCOPHAGE PO SCH (17:30)
--- NOTE | 2019-12-22 19:14 | HISTORY AND PHYSICAL ---
CHIEF COMPLAINT: Shortness of breath, cough and wheezing. HISTORY OF PRESENT ILLNESS: She is a 64-year-old white female who was evaluated on 12/17/2019 for acute chronic obstructive pulmonary disease exacerbation, possible lingular infiltrate. The patient was treated as an outpatient and failed to improve. She came in with cough and shortness of breath and wheezing. Admitted to the hospital with COPD exacerbation. PAST MEDICAL HISTORY: 1. Chronic anxiety. 2. COPD. 3. Depression. 4. Type 2 diabetes. 5. Hypertension. 6. Acid reflux disease due to hiatal hernia. 7. Chronic nicotine abuse. 8. Hyperlipidemia. 9. Complex left renal cyst. PAST SURGICAL HISTORY: Spontaneous pneumothorax on the right side, anterior gastropexy for hiatal hernia, complete hysterectomy, C-sections x3. Also, excision of complex cyst on the left kidney. MEDICATIONS: Metformin 1000 p.o. b.i.d., Xanax 0.25 p.o. b.i.d., losartan 50 daily, Breo 100/25 one puff daily, Reglan 10 mg t.i.d., MiraLAX 17 grams daily, folic acid 1 mg daily, Iron 18 mg daily, Neurontin 100 daily, Protonix 40 daily. ALLERGIES: Reported to a Crestor with bad taste changes. SOCIAL HISTORY: , , four children. Lives in [place]. Smoking one half pack a day since the age 32. No alcohol. FAMILY HISTORY: Father of heart attack at 54. Mom of ovarian cancer. HEALTH MAINTENANCE: lnfluenza vaccine June 2018, pneumococcal-2018. Last physical mammography February 2019. DEXA scan February 2015. Colonoscopy [place] [address] Zambrano. REVIEW OF SYSTEMS: HEENT: No headache. No vision problem. No earache. Sniffles. Postnasal drainage. Respiratory: Cough and shortness of breath and wheezing. Heart: No chest pain. GI: No nausea, vomiting, abdominal pain. : No history of hesitancy, frequency, dysuria. Extremities: No swelling of legs. No claudication symptoms. Skin: No skin rashes. Musculoskeletal: No joint pain. Neurologic: No focal symptoms or weakness. PHYSICAL EXAMINATION: VITAL SIGNS: Temperature is 98 degrees. Vitals are stable. 5 feet 4 inches. Weight 118 pounds. HEENT: Atraumatic, normocephalic. Pupils equal, react to light. TMs are normal. Nose and throat slightly congested. NECK: Supple. No lymphadenopathy. CHEST: Bilateral wheezing. HEART: Sounds regular and distant. ABDOMEN: Belly is soft, nontender. Good bowel sounds. EXTREMITIES: No peripheral edema or cyanosis. NEUROLOGICAL: No obvious neurological deficits. IMAGING: Chest x-ray in my office, COPD changes, scarring in the left lingula. LABORATORY DATA: CBC: White cell count 11.2, hematocrit 39, platelets 384,000. PT/INR is normal. ABG: pH is 7.45, pCO2 30, PO2 87, carboxyhemoglobin is 10. Sodium 133, potassium 3.8, glucose 140. ASSESSMENT AND PLAN: 1. A 64-year-old white female admitted to the hospital with acute chronic obstructive pulmonary disease exacerbation with failure of outpatient treatment, ongoing tobacco abuse. Plan is Nicotrol patch, oxygen, bronchodilators, intravenous steroids, intravenous antibiotics. 2. Poor intravenous access. PICC line. 3. Deep vein thrombosis and gastrointestinal prophylaxes as per order sheet. 4. Reconcile home medicines. 5. Type 2 diabetes on sliding scale with insulin coverage. 6. Hyponatremia. Intravenous fluids and will follow up. cc: Cristofer Fonseca MD MTDD
[2019-12-22] MEDS: XANAX PO SCH (21:13)
[2019-12-23] MEDS: ZOSYN 3.375 GM in NS 50 ML IV SCH ×4 (04:05→23:38)
[2019-12-23] MEDS: HUMULIN R SUBQ SCH ×4 (07:03→21:19)
[2019-12-23] MEDS: NS 1,000 ML IV SCH ×2 (09:33→21:20)
[2019-12-23] MEDS: GLUCOPHAGE PO SCH ×2 (09:34→16:15)
[2019-12-23] MEDS: NICODERM PATCH TD SCH (09:34)
[2019-12-23] MEDS: REGLAN PO SCH (09:35)
[2019-12-23] MEDS: SOLU-MEDROL IV SCH ×3 (09:35→23:39)
[2019-12-23] MEDS: FOLIC ACID PO SCH (09:35)
[2019-12-23] MEDS: XANAX PO SCH ×3 (09:39→21:19)
[2019-12-23] MEDS: MIRALAX PO SCH (09:39)
[2019-12-23] MEDS: PROTONIX [NONFORMULARY] PO SCH ×2 (09:41→21:19)
--- NOTE | 2019-12-23 18:02 | PROGRESS NOTE ---
DATE: 12/23/2019 Patient is a little better and PICC line was placed. Decreased shortness of breath, wheezing. No chest pain. PHYSICAL EXAMINATION: Temperature is 98 degrees. Tachycardic. Vitals are stable, 97% on room air.Chest: Bilateral wheezing and mostly rhonchi and squeaks. Heart: Sounds are regular. Belly is soft, nontender. No obvious deficits. INVESTIGATIONS: None reported. ASSESSMENT AND PLAN: 1. Acute chronic obstructive pulmonary disease exacerbation. 2. Dehydration. 3. Ongoing tobacco abuse. 4. Type 2 diabetes. 5. Constipation. Plan of care is continue IV fluids, IV steroids, IV antibiotics, nicotine cessation programs and added MiraLAX for constipation and will follow up. LEVEL OF DOCUMENTATION: 25 minutes. cc: Cristofer Fonseca MD
[2019-12-23] MEDS: LEVAQUIN 500 MG/D5W 500 MG/100 ML IVPB IV SCH (18:34)
[2019-12-24] MEDS: ZOSYN 3.375 GM in NS 50 ML IV SCH ×3 (04:24→16:29)
[2019-12-24] MEDS: HUMULIN R SUBQ SCH ×5 (06:48→21:15)
[2019-12-24] MEDS: SOLU-MEDROL IV SCH ×2 (07:57→16:28)
[2019-12-24] MEDS: GLUCOPHAGE PO SCH ×2 (07:57→16:28)
[2019-12-24] MEDS: REGLAN PO SCH ×2 (07:58→09:27)
[2019-12-24] MEDS: FOLIC ACID PO SCH ×2 (07:58→09:26)
[2019-12-24] MEDS: NICODERM PATCH TD SCH (07:59)
[2019-12-24] MEDS: XANAX PO SCH ×3 (07:59→21:09)
[2019-12-24] MEDS: MIRALAX PO SCH (07:59)
[2019-12-24] MEDS: NS 1,000 ML IV SCH ×2 (11:51→14:23)
[2019-12-24] MEDS: LEVAQUIN 500 MG/D5W 500 MG/100 ML IVPB IV SCH (17:23)
--- NOTE | 2019-12-24 18:23 | PROGRESS NOTE ---
DATE: 12/24/2019 SUBJECTIVE: A 64-year-old white female admitted to the hospital with COPD, decreased shortness of breath, cough, and wheezing. OBJECTIVE: Temperature is 98.5 degrees, pulse is 94. Vitals are stable. HEENT exam within normal limits. Decreased wheezing. Heart sounds are regular. Belly is soft, nontender. Good bowel sounds no. No neurological deficits. ASSESSMENT: 1. Acute chronic obstructive pulmonary disease exacerbation. 2. Ongoing tobacco abuse. 3. Dehydration. 4. Diabetes. PLAN OF CARE: Continue IV fluids, IV steroids, IV antibiotics, and continue monitoring blood sugars and currently stable. We will follow up. cc: Cristofer Fonseca MD
[2019-12-24] MEDS: PROTONIX [NONFORMULARY] PO SCH (21:10)
[2019-12-25] MEDS: ZOSYN 3.375 GM in NS 50 ML IV SCH ×5 (00:27→23:25)
[2019-12-25] MEDS: SOLU-MEDROL IV SCH ×3 (00:44→16:28)
[2019-12-25] MEDS: NS 1,000 ML IV SCH ×3 (05:52→10:53)
[2019-12-25] MEDS: HUMULIN R SUBQ SCH ×4 (07:00→20:36)
[2019-12-25] MEDS: DUONEB (A & A) INH PRN ×2 (07:57→23:37)
[2019-12-25] MEDS: GLUCOPHAGE PO SCH ×2 (08:13→16:29)
[2019-12-25] MEDS: XANAX PO SCH ×2 (08:13→20:36)
[2019-12-25] MEDS: NICODERM PATCH TD SCH (08:13)
[2019-12-25] MEDS: FOLIC ACID PO SCH (08:13)
[2019-12-25] MEDS: REGLAN PO SCH (08:13)
[2019-12-25] MEDS: MIRALAX PO SCH (10:32)
--- NOTE | 2019-12-25 17:17 | PROGRESS NOTE ---
DATE: 12/25/2019 SUBJECTIVE: A 64-year-old white female admitted to the hospital for acute COPD. She is getting better and no chest pain. PHYSICAL EXAMINATION: Temperature is 98 degrees. Vitals are stable.Chest: Bilateral air entry. Decreased expiratory wheezing. Heart: Sounds are regular. Abdomen: Belly is soft, nontender. No obvious deficits. ASSESSMENT AND PLAN: 1. Acute chronic obstructive pulmonary disease exacerbation. 2. Hyponatremia. 3. Type 2 diabetes. 4. Chronic tobacco abuse. 5. Continue present treatment and if she is stable, will discharge in the morning. LEVEL OF DOCUMENTATION: 25 minutes. cc: Cristofer Fonseca MD
[2019-12-25] MEDS: LEVAQUIN 500 MG/D5W 500 MG/100 ML IVPB IV SCH (18:39)
[2019-12-25] MEDS: PROTONIX [NONFORMULARY] PO SCH (20:36)
[2019-12-26] MEDS: SOLU-MEDROL IV SCH ×2 (00:08→08:33)
[2019-12-26] MEDS: ZOSYN 3.375 GM in NS 50 ML IV SCH (05:42)
[2019-12-26] MEDS: NS 1,000 ML IV SCH (06:39)
[2019-12-26] MEDS: HUMULIN R SUBQ SCH (06:54)
[2019-12-26 08:16] VITALS: BP 171/81
[2019-12-26] MEDS: GLUCOPHAGE PO SCH (08:31)
[2019-12-26] MEDS: REGLAN PO SCH (08:32)
[2019-12-26] MEDS: NICODERM PATCH TD SCH (08:32)
[2019-12-26] MEDS: XANAX PO SCH (08:32)
[2019-12-26] MEDS: MIRALAX PO SCH (08:33)
[2019-12-26] MEDS: FOLIC ACID PO SCH (08:33)
--- NOTE | 2019-12-27 20:14 | DISCHARGE SUMMARY ---
ADMISSION DATE: 12/22/2019 DISCHARGE DATE: 12/26/2019 DISCHARGING DIAGNOSES: 1. Acute chronic obstructive pulmonary disease exacerbation. 2. Abnormal chest x-ray with chronic obstructive pulmonary disease changes and left lingular fibrosis. SECONDARY DIAGNOSES: 1. Chronic anxiety. 2. Depression. 3. Type 2 diabetes. 4. Hypertension. 5. Acid reflux disease due to hiatal hernia. 6. Hyperlipidemia. 7. Status post excision of renal cyst on the left kidney. BRIEF HISTORY: Please see the H and P that was done on 12/22/2019. In brief, she is a 64-year- old white female with the above problems who has failed outpatient treatment for chronic obstructive pulmonary disease exacerbation. Chest x-ray showed possible bronchopneumonia on the left side. The patient was started on oxygen, bronchodilators, IV steroids, and IV antibiotics. Nicotine cessation programs were discussed. The patient had a poor IV access. PICC line was placed on the right side. The patient subsequently got better. LABORATORIES: White cell count 11, hematocrit 39, platelets 384,000. The pO2 of 87 on room air with elevated carboxyhemoglobin. SMA-7 was normal. HOSPITAL COURSE: Rest of the hospital course was uneventful. DISCHARGING INSTRUCTIONS: 1. Pneumococcal vaccine 13 was given 10/21/2018. Tetanus 02/18/2017. 2. Quit smoking. 3. Metformin 5000 p.o. b.i.d. 4. Xanax 0.25 p.o. b.i.d. 5. Losartan 50 daily. 6. Breo 100/25 one puff in the morning. 7. Reglan 10 mg at bedtime. 8. MiraLAX 17 g daily. 9. Folic acid 1 mg daily. 10. Iron 18 mg daily. 11. Gabapentin 100 daily. 12. Protonix 40 mg daily. 13. Spiriva 1 puff in the evening. 14. Albuterol/Atrovent nebulizers q. 6. 15. Vitamin D3 at 8 units daily. 16. We will give a work excuse until this month on January 14. 17. Follow up the office next week. cc: Cristofer oFnseca MD
== END 2019-12-26 09:39 | disposition home or self-care (01) | DRG 191 ==
LOC: DIRADM 11:59 → EDIPHOLD 12:36 → 4N 14:27
PROVIDERS: ADMIT Internal Medicine; ATTEND Internal Medicine